=== PATIENT | male | born 1990 | race Caucasian/White ===

== ENCOUNTER 2020-07-04 18:56 | Inpatient (IN) | payer MEDICAID ==
[~2020-07-04] VITALS: Ht 162.6 cm; Wt 57.6 kg
[2020-07-04 20:51] LABS: COVID AG,FIA SOURCE NASOPHARYNGEAL
[2020-07-04] MEDS ORDERED: QUEtiapine FUMARATE 100 MG TABLET PO PRN (22:00)
[2020-07-04] MEDS ORDERED: ZOLPIDEM TARTRATE 10 MG TABLET PO PRN (22:00)
[2020-07-04] MEDS ORDERED: HALOPERIDOL 5 MG TABLET PO ONE (22:00)
[2020-07-04] MEDS ORDERED: LORazepam 2 MG TABLET PO PRN (22:00)
[2020-07-04] MEDS ORDERED: DiphenhydrAMINE HCL 50 MG/ML VIAL IM ONE ×2 (23:45)
[2020-07-04] MEDS ORDERED: HALOPERIDOL LACTATE 5 MG/ML VIAL IM ONE ×2 (23:45)
[2020-07-04] MEDS ORDERED: LORazepam 2 MG/ML VIAL IM ONE ×2 (23:45)
[2020-07-05 08:28] LABS: CHOL/HDL RATIO 1.8 (4.2-7.3); CHOLESTEROL 126 mg/dL (131-200); HDL CHOLESTEROL 71 mg/dL (40-60); LDL CHOL (CALC.) 43 mg/dL (0-130); TRIGLYCERIDES 60 mg/dL (15-150)
[2020-07-05 08:53] LABS: BASOPHILS % (AUTO) 0.6 % (0.0-2.0); EOSINOPHILS % (AUTO) 3.2 % (1.0-6.0); HEMATOCRIT 45.1 % (41-53); HEMOGLOBIN 15.3 g/dL (13.5-17.5); LYMPHOCYTES % (AUTO) 33.6 % (22.0-44.0); MEAN CORPUSCULAR HGB CONC 33.9 G/dL (31.0-37.0); MEAN CORPUSCULAR VOLUME 89 fL (80-100); MONOCYTES # (AUTO) 0.7 K/uL (0.1-1.0); MONOCYTES % (AUTO) 7.9 % (2.0-9.0); NEUTROPHILS # (AUTO) 4.9 K/uL (1.8-7.7); NEUTROPHILS % (AUTO) 54.7 % (40.0-70.0); PLATELET COUNT (AUTO) 277 K/uL (150-450); RED CELL DISTRIBUTION WIDTH 13.6 % (11.5-14.5)
[2020-07-05 09:01] LABS: ALANINE AMINOTRANSFERASE 23 U/L (12-78); ALBUMIN 3.8 g/dL (3.4-5.0); ALKALINE PHOSPHATASE 54 U/L (46-116); ANION GAP 10 mmol/L (8-16); ASPARTATE AMINOTRANSFERASE 28 U/L (15-37); BILIRUBIN,TOTAL 0.7 mg/dL (0.1-1.0); CALCIUM, TOTAL 8.9 mg/dL (8.8-10.5); CARBON DIOXIDE 26 mmol/L (22-29); CHLORIDE 105 mmol/L (98-107); CREATININE 1.03 mg/dL (0.60-1.30); GLOMERULAR FILTR. RATE CALC > 60 mL/min (>60); GLUCOSE,RANDOM 94 mg/dL (70-110); POTASSIUM 3.7 mmol/L (3.5-5.1); SODIUM SERUM 141 mmol/L (136-145); TOTAL PROTEIN, SERUM 7.3 g/dL (6.4-8.2); UREA NITROGEN, BLOOD 13 mg/dL (7-18)
[2020-07-05 16:34] VITALS: BP 141/87
[2020-07-06 04:33] VITALS: BP 141/87
[2020-07-06 08:17] VITALS: BP 101/62
[2020-07-06 08:32] VITALS: BP 101/62
[2020-07-06] MEDS ORDERED: GuaiFENesin/D-METHORPHAN [SUGAR-FREE] 200-20MG/10 ML SYRUP UDCUP PO PRN (10:00)
[2020-07-06] MEDS ORDERED: ONDANSETRON HCL 4 MG TABLET PO PRN (10:00)
[2020-07-06] MEDS ORDERED: NICOTINE 14 MG/24 HOUR PATCH TD PRN (10:00)
[2020-07-06] MEDS ORDERED: CloNIDine HCL 0.1 MG TABLET PO PRN (10:00)
[2020-07-06] MEDS ORDERED: MAG HYDROX/AL HYDROX/SIMETH ES 30 ML SUSPENSION UDCUP PO PRN (10:00)
[2020-07-06] MEDS ORDERED: IBUPROFEN 400 MG TABLET PO PRN (10:00)
[2020-07-06] MEDS ORDERED: MAGNESIUM HYDROXIDE SUSPENSION 30 ML UDCUP PO PRN (10:00)
[2020-07-06] MEDS ORDERED: ACETAMINOPHEN 325 MG TABLET PO PRN (10:00)
[2020-07-06] MEDS ORDERED: DOCUSATE SODIUM 100 MG CAPSULE PO PRN (10:00)
[2020-07-06] MEDS ORDERED: ALBUTEROL SULFATE HFA 90 MCG/PUFF 8 GM INHALER IH PRN (10:00)
[2020-07-06] MEDS ORDERED: LOPERAMIDE HCL 2 MG CAPSULE PO PRN (10:00)
[2020-07-06] MEDS ORDERED: PETROLATUM,WHITE 28 GM JELLY TP PRN (10:00)
[2020-07-06 16:15] VITALS: BP 102/62
[2020-07-06] MEDS ORDERED: LURASIDONE HCL 40 MG TABLET PO SCH (17:00)
[2020-07-07 00:07] VITALS: BP 108/64
[2020-07-07 08:05] VITALS: BP 101/72
[2020-07-07] MEDS ORDERED: LURA40TA2 PO ×2 (11:25→11:28)
== END 2020-07-07 16:00 | disposition home or self-care (01) | DRG 750 ==
LOC: EMS 18:56 → UNDOADMIN 21:00 → B3A 21:00 → UNDOADMIN 07-05 14:10 → B3A 07-05 14:10
DX: F25.0 Schizoaffective disorder, bipolar type (principal); F10.10 Alcohol abuse, uncomplicated; F17.200 Nicotine dependence, unspecified, uncomplicated; F41.9 Anxiety disorder, unspecified; Y90.9 Presence of alcohol in blood, level not specified; F19.10 Other psychoactive substance abuse, uncomplicated; Z20.822 Contact with and (suspected) exposure to COVID-19
CPT/HCPCS: 87426; 99291; G0480; J1200; J1630; J2060

== ENCOUNTER 2020-07-25 15:25 | Inpatient (IN) | payer MEDICAID ==
[~2020-07-25] VITALS: Ht 165.1 cm; Wt 61.4 kg
[~2020-07-25 15:25] MED LIST: LURA40TA2 PO
[2020-07-25 17:02] LABS: COVID AG,FIA SOURCE NASOPHARYNGEAL
[2020-07-25] MEDS ORDERED: ZOLPIDEM TARTRATE 10 MG TABLET PO PRN (19:45)
[2020-07-25] MEDS: QUEtiapine FUMARATE 100 MG TABLET PO PRN (19:53)
[2020-07-25] MEDS: LORazepam 2 MG TABLET PO PRN (19:53)
[2020-07-25 21:20] LABS: AMPHET/METH SCREEN,URINE POSITIVE (NEGATIVE); BARBITURATE SCREEN, URINE NEGATIVE (NEGATIVE); BENZODIAZEPINES SCREEN,URINE NEGATIVE (NEGATIVE); CANNABINOID SCREEN,URINE NEGATIVE (NEGATIVE); COCAINE SCREEN,URINE NEGATIVE (NEGATIVE); METHADONE SCREEN, URINE NEGATIVE (NEGATIVE); OPIATE SCREEN,URINE NEGATIVE (NEGATIVE)
[2020-07-25 21:30] LABS: PHENCYCLIDINE SCREEN,URINE NEGATIVE (NEGATIVE)
[2020-07-26 00:14] VITALS: BP 128/91
[2020-07-26 08:30] VITALS: BP 114/70
[2020-07-26] MEDS ORDERED: DOCUSATE SODIUM 100 MG CAPSULE PO PRN (10:45)
[2020-07-26] MEDS ORDERED: ACETAMINOPHEN 325 MG TABLET PO PRN (10:45)
[2020-07-26] MEDS ORDERED: MAGNESIUM HYDROXIDE SUSPENSION 30 ML UDCUP PO PRN (10:45)
[2020-07-26] MEDS ORDERED: GuaiFENesin/D-METHORPHAN [SUGAR-FREE] 200-20MG/10 ML SYRUP UDCUP PO PRN (10:45)
[2020-07-26] MEDS ORDERED: ALBUTEROL SULFATE HFA 90 MCG/PUFF 8 GM INHALER IH PRN (10:45)
[2020-07-26] MEDS ORDERED: PETROLATUM,WHITE 28 GM JELLY TP PRN (10:45)
[2020-07-26] MEDS ORDERED: MAG HYDROX/AL HYDROX/SIMETH ES 30 ML SUSPENSION UDCUP PO PRN (10:45)
[2020-07-26] MEDS ORDERED: CloNIDine HCL 0.1 MG TABLET PO PRN (10:45)
[2020-07-26] MEDS ORDERED: IBUPROFEN 400 MG TABLET PO PRN (10:45)
[2020-07-26] MEDS ORDERED: ONDANSETRON HCL 4 MG TABLET PO PRN (10:45)
[2020-07-26] MEDS ORDERED: LOPERAMIDE HCL 2 MG CAPSULE PO PRN (10:45)
[2020-07-26] MEDS: LORazepam 2 MG TABLET PO PRN (11:14)
[2020-07-26 16:09] VITALS: BP 109/71
[2020-07-27 06:39] VITALS: BP 128/70
[2020-07-27] MEDS: NICOTINE 14 MG/24 HOUR PATCH TD PRN (08:02)
[2020-07-27 08:14] VITALS: BP 120/71
[2020-07-27] MEDS: LORazepam 2 MG TABLET PO PRN ×2 (08:33→16:11)
[2020-07-27] MEDS: QUEtiapine FUMARATE 100 MG TABLET PO PRN ×2 (08:33→16:11)
[2020-07-27 16:10] VITALS: BP_SYST 105; BP_SYST 110; BP_DIAS 75
[2020-07-28 05:19] VITALS: BP 117/70
[2020-07-28 08:15] VITALS: BP 102/60
[2020-07-28] MEDS: NICOTINE 14 MG/24 HOUR PATCH TD PRN (09:25)
== END 2020-07-28 12:40 | disposition home or self-care (01) | DRG 750 ==
LOC: EMS 15:27 → B3A 22:10
PROVIDERS: ADMIT Psychiatry & Neurology Psychiatry; ATTEND Psychiatry & Neurology Psychiatry
DX: F25.1 Schizoaffective disorder, depressive type (principal); R45.851 Suicidal ideations; Z91.19 Patient's noncompliance with other medical treatment and regimen; F17.200 Nicotine dependence, unspecified, uncomplicated; F19.10 Other psychoactive substance abuse, uncomplicated; F32.9 Major depressive disorder, single episode, unspecified; Z20.822 Contact with and (suspected) exposure to COVID-19
CPT/HCPCS: 87081; 87426; 99285